=== PATIENT | male | born 1995 | race Caucasian/White ===

== ENCOUNTER 2019-12-31 00:54 | Emergency (ER) | payer BC ==
[2019-12-31] MEDS ORDERED: cefTRIAXone 250 MG in Lidocaine 1% 1 ML IM ONE ×2 (01:37→01:44)
[2019-12-31] MEDS ORDERED: Doxycycline 100 MG Cap PO ONE (01:38)
--- NOTE | 2019-12-31 01:45 | EDM.PDOC ---
ED HPI GENERAL MEDICAL PROBLEM - General Chief Complaint: Genitourinary Problem Stated Complaint: LEFT TESTICLE PAIN RADIATING TO ABDOMEN Time Seen by Provider: 12/31/19 01:25 Source of Information: Reports: Patient - History of Present Illness INITIAL COMMENTS - FREE TEXT/NARRATIVE: The patient is a 24-year-old male who presents the ER complaining of left testicular pain. He describes this as an ache that radiates upward into his abdomen. He denies any back pain, no dysuria, no urinary frequency, no penile discharge, no testicular trauma, no testicular swelling or any other acute complaints. Pain is constant and never goes away. It is worse if he is walking around and better if he is just sitting still. He states that he has had this a few years ago when he was diagnosed with epididymitis and was given antibiotics and it went away. L testicle Pain Score (Numeric/FACES): 3 - Related Data Allergies Allergy/AdvReac Type Severity Reaction Status Date / Time No Known Allergies Allergy Verified 12/31/19 01:16 Home Meds: Home Meds Doxycycline [Vibramycin] 100 mg PO BID #20 cap 12/31/19 [Rx] Past Medical History Gastrointestinal History: Reports: None Genitourinary History: Reports: Other (See Below) Other Genitourinary History: epidydimitis - Past Surgical History GI Surgical History: Reports: Other (See Below) Other GI Surgeries/Procedures: abdominal sx "when i was little" Male Surgical History: Reports: None Social & Family History - Family History Family Medical History: Noncontributory - Tobacco Use Smoking Status *Q: Never Smoker Second Hand Smoke Exposure: No - Caffeine Use Caffeine Use: Reports: Soda - Recreational Drug Use Recreational Drug Use: No ED ROS GENERAL - Review of Systems Review Of Systems: See Below (Positive for left testicular pain, negative for dysuria, negative for urinary frequency, negative for testicular swelling, negative for nausea, negative for back pain, all other Positives and pertinent negatives as per HPI. All other pertinent systems were reviewed and are negative ) ED EXAM, GI/ABD - Physical Exam Exam: See Below Text/Narrative:: Constitutional: No acute distress, Non-toxic appearance. HEENT: Normocephalic, Atraumatic, EOMI Neck: Normal range of motion, No stridor, trachea midline Respiratory: No respiratory distress, No tachypnea Cardiovascular: Deferred Gastrointestinal: Abdomen soft and nontender, no hernias palpated Genital / Urinary: Penis is within normal limits, no testicular hernia is palpated, right testicle is normal, left testicle is normal in size but is tender to palpation, pain is mild Musculoskeletal: All four extremities present and atraumatic Back: FROM Integument: Warm, Dry, Color is ethnicity appropriate, No rash. Neuro: Alert, Awake, No focal deficits noted Psych: Affect, Judgement, mood normal Course - Vital Signs Text/Narrative:: I talked to the patient in detail and given that the patient symptoms have been continuous for 2 to 3 days and the pain is mild with no waxing/waning symptoms this does not sound like a testicular torsion. I talked to the patient in detail and offered a testicular ultrasound but he is comfortable with antibiotic treatment only and he will follow-up with urology provided to him. The patient will be given Rocephin 250 mg IM and doxycycline 100 mg in the ER and a prescription for doxycycline 100 mg p.o. every 12 hours for 10 days. Last Recorded V/S: Last Vital Signs Temp 37.2 C 12/31/19 01:07 Pulse 100 12/31/19 01:07 Resp 17 12/31/19 01:07 BP 129/86 12/31/19 01:07 Pulse Ox 96 12/31/19 01:07 - Orders/Labs/Meds Meds: Medications Discontinued Medications Generic Name Dose Route Start Last Admin Trade Name Freq PRN Reason Stop Dose Admin Doxycycline Hyclate 100 mg 12/31/19 01:38 Vibramycin PO 12/31/19 01:39 ONETIME ONE Ceftriaxone Sodium 250 mg/ 1 mls @ 1 mls/sec 12/31/19 01:37 Lidocaine HCl IM 12/31/19 01:38 ONETIME ONE Departure - Departure Time of Disposition: 01:43 Disposition: Home, Self-Care 01 Condition: Good Clinical Impression: Testicular pain, left - Discharge Information Prescriptions: Doxycycline [Vibramycin] 100 mg PO BID #20 cap Instructions: Epididymitis, Testicular Self-Exam, [id number] Referrals: PCP,None [Primary Care Provider] - Keyon Oneal MD [Physician] - Sepsis Event Note - Evaluation Sepsis Screening Result: No Definite Risk - Focused Exam Vital Signs: Vital Signs Temp Pulse Resp BP Pulse Ox 12/31/19 01:07 37.2 C 100 17 129/86 96 Date Exam was Performed: 12/31/19 Time Exam was Performed: 01:40
[2019-12-31] MEDS: cefTRIAXone 250 MG Vial ONE ×2 (01:48→01:58)
== END 2019-12-31 02:09 | disposition home or self-care (01) ==
LOC: MW.ED 00:54
DX: N50.812 Left testicular pain (principal)
CPT/HCPCS: 96372; 99283; A9270; J0696; J2001